=== PATIENT | female | born 1960 | race Hispanic/Latino ===

== ENCOUNTER 2019-07-25 18:26 | Emergency (ER) | payer OTHER ==
[~2019-07-25 18:26] MED LIST: TAMO20TA4 PO
== END 2019-07-25 19:34 | disposition home or self-care (01) ==
LOC: EDH 18:26
DX: H66.92 Otitis media, unspecified, left ear (principal); J32.9 Chronic sinusitis, unspecified; J02.9 Acute pharyngitis, unspecified; Z88.6 Allergy status to analgesic agent; Z85.3 Personal history of malignant neoplasm of breast; Z90.49 Acquired absence of other specified parts of digestive tract

== ENCOUNTER 2023-06-16 04:25 | Emergency (ER) | payer OTHER ==
[~2023-06-16] VITALS: Ht 157.5 cm; Wt 89.8 kg
[2023-06-16] MEDS ORDERED: IBUP-1493 PO (06:22)
[2023-06-16 06:38] VITALS: BP 152/86; PULSE 78; RESP 18; O2SAT 96
== END 2023-06-16 06:44 | disposition home or self-care (01) ==
LOC: EDH 04:25
DX: M25.462 Effusion, left knee (principal); M25.461 Effusion, right knee; Z88.5 Allergy status to narcotic agent
CPT/HCPCS: 73562